=== PATIENT | female | born 2000 | race Caucasian/White ===

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

== ENCOUNTER 2024-04-17 22:02 | Inpatient (IN) ==
[2024-04-17 22:55] LABS: ABS Eosinophils 0.1 10^3/uL (0.0-0.5); ABS Lymphocytes 1.8 10^3/uL (1.0-4.8); ABS Monocytes 0.8 10^3/uL (0.0-0.9); ABS Neutrophils 7.5 10^3/uL (1.5-7.6); Eosinophil % 0.5 %; Hematocrit 34.3 % (35-45); Hemoglobin 11.9 g/dL (11.5-14.3); Lymphocyte % 17.9 %; Mean Corpuscular Hemoglobin 29.9 pg (27-33); Mean Corpuscular Hgb Conc 34.8 g/dL (31-36); Mean Corpuscular Volume 85.8 fL (80-97); Mean Platelet Volume 8.2 fL (7.5-11.2); Platelet Count 248 10^3/uL (150-450); Red Cell Distribution Width 14.1 % (12-17); White Blood Count 10.2 10^3/uL (3.8-11.8)
[2024-04-17 23:00] LABS: Urine Creatinine Concentration 39.07 mg/dL (20.00-320.00); Urine TP Creat Ratio 1.02 mg/mg
[2024-04-17] MEDS ORDERED: Lidocaine 1% VIAL 10 MG/ML 30 ML VIAL INJ PRN (23:00)
[2024-04-17] MEDS: Lactated Ringers 1000 ml BAG 1,000 ML IV ONE (23:05)
[2024-04-17 23:10] LABS: Urine Appearance Clear; Urine Benzodiazepine Screen None Detected (None Detect); Urine Bilirubin Negative (Negative); Urine Blood Trace (Negative); Urine Cannabinoids Screen None Detected (None Detect); Urine Color Colorless; Urine Glucose Negative (Negative); Urine Ketones Negative (Negative); Urine Nitrite Negative (Negative); Urine Opiates Screen None Detected (None Detect); Urine Protein Trace (Negative); Urine Urobilinogen Negative (Negative); Urine pH 6.5 (5.0-8.0)
[2024-04-17 23:17] LABS: Albumin 3.7 g/dL (3.2-5.2); Albumin/Globulin Ratio 1.5 (1-3); Calcium 9.8 mg/dL (8.6-10.3); Creatinine, Serum 0.66 mg/dL (0.51-0.95); Globulin 2.5 g/dL (2-4); Potassium 4.2 mmol/L (3.5-5.0); Total Bilirubin 0.2 mg/dL (0.2-1.0); Total Protein 6.2 g/dL (6.4-8.9); Uric Acid 5.3 mg/dL (2.3-6.6); eGFR CKD-EPI 127.1 (>60)
[2024-04-18] MEDS: OBEPIDURAL (200 ML) 200 ML EPIDURAL ONE (00:20)
[2024-04-18] MEDS: Lactated Ringers 1000 ml BAG 1,000 ML IV SCH (00:20)
[2024-04-18] MEDS: Oxytocin in LR 20,000 MILLI.UNIT/1,000 ML BAG IV SCH ×2 (02:01→05:39)
[2024-04-18] MEDS ORDERED: Glycerin ADULT 2.4 gm SUPP PR PRN (02:37)
[2024-04-18 02:46] LABS: Urine Appearance Clear; Urine Bilirubin Negative (Negative); Urine Blood Negative (Negative); Urine Color Light-Yellow; Urine Glucose Negative (Negative); Urine Ketones Negative (Negative); Urine Nitrite Negative (Negative); Urine Protein 1+ (>=30 mg/dL) (Negative); Urine Urobilinogen Negative (Negative); Urine pH 6.5 (5.0-8.0)
[2024-04-18] MEDS ORDERED: Lactated Ringers 1000 ml BAG 1,000 ML IV SCH (03:00)
[2024-04-18 03:06] LABS: Urine Bacteria Absent /HPF (Absent); Urine Red Blood Cell Absent /HPF (0-Trace); Urine Squamous Epithelial Cell Present /HPF (Absent); Urine White Blood Cell Absent /HPF (0-Trace)
[2024-04-18] MEDS: Dibucaine 1% OINT 28.35 GM TUBE PR PRN (03:08)
[2024-04-18] MEDS: Witch Hazel PAD JAR TOPICAL PRN (03:08)
[2024-04-18] MEDS: Lidocaine 1.5% EPI 1:200,000 30 ML SDV ONE (03:15)
[2024-04-18] MEDS: Phenylephrine 40 mcg/mL 10mL (400mcg) SYRINGE ONE (03:16)
[2024-04-18] MEDS: Buffered Lidocaine 1% SYRIN 1 ml INTRADERM ONE (03:17)
[2024-04-19] VITALS: BP 110/63
[2024-04-19 06:57] LABS: ABS Eosinophils 0.1 10^3/uL (0.0-0.5); ABS Lymphocytes 1.7 10^3/uL (1.0-4.8); ABS Monocytes 0.4 10^3/uL (0.0-0.9); ABS Neutrophils 5.8 10^3/uL (1.5-7.6); ABS Nucleated RBC 0.01 10^3/ul; Eosinophil % 1.4 %; Hematocrit 33.7 % (35-45); Mean Corpuscular Hemoglobin 30.7 pg (27-33); Mean Corpuscular Hgb Conc 35.5 g/dL (31-36); Mean Corpuscular Volume 86.4 fL (80-97); Mean Platelet Volume 7.8 fL (7.5-11.2); Nucleated Red Blood Cells % 0.1 %/100WBC (0.0-0.8); Platelet Count 219 10^3/uL (150-450); Red Blood Count 3.91 10^6/uL (3.63-4.92); Red Cell Distribution Width 14.2 % (12-17)
[2024-04-19 07:24] LABS: Albumin 3.4 g/dL (3.2-5.2); Albumin/Globulin Ratio 1.5 (1-3); Calcium 8.9 mg/dL (8.6-10.3); Creatinine, Serum 0.63 mg/dL (0.51-0.95); Globulin 2.3 g/dL (2-4); Potassium 4.2 mmol/L (3.5-5.0); Total Bilirubin 0.2 mg/dL (0.2-1.0); Total Protein 5.7 g/dL (6.4-8.9); eGFR CKD-EPI 128.6 (>60)
[2024-04-19] MEDS: Influenza Vaccine *TRI* 2024-25* 0.5 ML SYRINGE IM ONE (10:45)
[2024-04-19] MEDS: Measles, Mumps,Rubella VACC 0.5 ML/VIAL SUBCUT ONE (10:46)
== END 2024-04-19 16:12 | disposition home or self-care (01) | DRG 560 ==
LOC: MCHOBOUT 22:02 → MCHOB 22:54
PROVIDERS: ADMIT Advanced Practice Midwife; ATTEND Advanced Practice Midwife